=== PATIENT | female | born 1975 | race Caucasian/White ===

== ENCOUNTER → 2018-02-24 10:01 | Outpatient (REF) | payer MEDICAID, SELFPAY ==
[2018-02-24 13:25] LABS: Basophils # 0.1 K/mm3 (0-0.2); Basophils % 0.9 % (0.1-2.0); Eosinophils # 0.2 K/mm3 (0.0-0.4); Eosinophils % 1.1 % (0.1-12.0); Hematocrit 53.5 % (37.0-47.0); Hemoglobin 16.9 g/dL (12.2-16.2); Lymphocytes # 4.6 K/mm3 (0.7-4.5); Lymphocytes % 32.7 K/mm3 (10-50); Mean Corpuscular HGB Conc 31.6 g/dL (31.8-35.4); Mean Corpuscular Hemoglobin 29.9 pg (27.0-31.2); Mean Corpuscular Volume 94.6 fl (81-99); Mean Platelet Volume 9.1 fl (7.4-10.4); Monocytes # 0.9 K/mm3 (0.1-1.0); Monocytes % 6.1 % (1.7-9.3); Neutrophils # 8.3 K/mm3 (1.8-7.8); Neutrophils % 59.2 % (37.0-80.0); Platelet Count 292 K/mm3 (142-424); Red Blood Count 5.66 M/mm3 (4.20-5.40); Red Cell Distribution Width 13.9 % (11.5-17.5)
[2018-02-24 14:58] LABS: Alanine Aminotransferase 43 U/L (12-78); Albumin Level 3.8 gm/dL (3.4-5.0); Albumin/Globulin Ratio 1.2 (1.1-1.8); Alkaline Phosphatase 74 U/L (46-116); Anion Gap 15.3 mEq/L (5-15); Aspartate Amino Transferase 25 U/L (15-37); Bilirubin,Total 0.3 mg/dL (0.2-1.0); Blood Urea Nitrogen 22 mg/dL (7-18); Calcium 9.7 mg/dL (8.5-10.1); Carbon Dioxide 27 mmol/L (21.0-32.0); Chloride 105 mmol/L (98-107); Chol/HDL Ratio 2.8 (1-3.5); Cholesterol 244 mg/dL (140-200); Creatinine,Serum 0.88 mg/dL (0.55-1.02); Estimated Glomerular Filt Rate 70 ml/min (>60); Free T4 (Free Thyroxine) 1.11 ng/dl (0.76-1.46); GFR (African American) 85 ML/MIN (>60); Globulin 3.3 gm/dl (1.3-3.2); Glucose 79 mg/dL (74-106); HDL Cholesterol 86 mg/dL (29-89); LDL Cholesterol 142 mg/dL (0-130); Potassium 4.3 mmoL/L (3.5-5.1); Sodium 143 mmol/L (136-145); Thyroid Stimulating Hormone 6.22 uIU/ml (0.358-3.740); Total Protein,Serum 7.1 gm/dL (6.4-8.2); Triglycerides 78 mg/dL (30-200); VLDL Cholesterol 16 mg/dL (0-40)
[2018-02-24 15:30] LABS: Erythrocyte Sedimentation Rate 8 mm/hr (0-20)
[2018-02-25 10:09] LABS: Vitamin D 25 Hydroxy 35.1 ng/mL (30.0-100.0)
== END ==
LOC: LAB 10:01
PROVIDERS: Visit Provider Emergency Medicine
DX: R53.83 Other fatigue (principal); Z79.899 Other long term (current) drug therapy
CPT/HCPCS: 80053; 80061; 82652; 84439; 84443; 85025; 85651

== ENCOUNTER → 2018-03-10 14:12 | Outpatient (REF) | payer MEDICAID, SELFPAY ==
[2018-03-10 18:29] LABS: Basophils # 0.1 K/mm3 (0-0.2); Basophils % 0.9 % (0.1-2.0); Eosinophils # 0.1 K/mm3 (0.0-0.4); Eosinophils % 0.7 % (0.1-12.0); Hematocrit 56.2 % (37.0-47.0); Hemoglobin 17.8 g/dL (12.2-16.2); Lymphocytes # 2.7 K/mm3 (0.7-4.5); Lymphocytes % 27.4 K/mm3 (10-50); Mean Corpuscular HGB Conc 31.6 g/dL (31.8-35.4); Mean Corpuscular Hemoglobin 29.7 pg (27.0-31.2); Mean Corpuscular Volume 94.1 fl (81-99); Mean Platelet Volume 9.7 fl (7.4-10.4); Monocytes # 0.5 K/mm3 (0.1-1.0); Monocytes % 4.8 % (1.7-9.3); Neutrophils # 6.5 K/mm3 (1.8-7.8); Neutrophils % 66.3 % (37.0-80.0); Platelet Count 262 K/mm3 (142-424); Red Blood Count 5.97 M/mm3 (4.20-5.40); Red Cell Distribution Width 13.3 % (11.5-17.5); White Blood Count 9.7 K/mm3 (4.8-10.8)
[2018-03-13 08:03] LABS: Folate 18.3 ng/mL (>3.0); Vitamin B12 646 pg/mL (232-1245)
== END ==
LOC: LAB 14:12
PROVIDERS: Visit Provider Nurse Practitioner Family
DX: R71.8 Other abnormality of red blood cells (principal); R20.2 Paresthesia of skin; R53.83 Other fatigue
CPT/HCPCS: 82607; 82746; 85025

== ENCOUNTER → 2018-04-22 10:38 | Outpatient (CLI) | payer MEDICAID, SELFPAY | PROVIDERS: Visit Provider Emergency Medicine | DX: Z79.899 Other long term (current) drug therapy (principal) ==

== ENCOUNTER → 2018-04-22 10:59 | Outpatient (REF) | payer MEDICAID, SELFPAY ==
[2018-04-22 14:10] LABS: Amphetamine/Metha Screen,Urine Negative ng/mL (<1000); Barbiturates Screen,Urine Negative ng/mL (<200); Benzodiazepines Screen,Urine Negative ng/mL (<200); Cannabinoid Screen,Urine Negative ng/mL (<50); Cocaine Screen,Urine Negative ng/mL (<300); Methadone Screen,Urine Negative ng/mL (<300); Opiate Screen,Urine Negative ng/mL (<300); Phencyclidine Screen,Urine Negative ng/mL (<25)
[2018-05-05 00:06] LABS: Oxycodone (GC/MS) 374 ng/mL (Cutoff=100)
[2018-05-06 08:29] LABS: Opiates Negative (Cutoff=100)
== END ==
LOC: LAB 10:59
PROVIDERS: Visit Provider Emergency Medicine
DX: Z79.899 Other long term (current) drug therapy (principal)
CPT/HCPCS: 80305; 80361; 80365; G0480

== ENCOUNTER → 2018-05-20 10:49 | Outpatient (REF) | payer MEDICAID, SELFPAY ==
[2018-05-20 14:31] LABS: Amphetamine/Metha Screen,Urine Negative ng/mL (<1000); Barbiturates Screen,Urine Negative ng/mL (<200); Benzodiazepines Screen,Urine Negative ng/mL (<200); Cannabinoid Screen,Urine Negative ng/mL (<50); Cocaine Screen,Urine Negative ng/mL (<300); Methadone Screen,Urine Negative ng/mL (<300); Opiate Screen,Urine Negative ng/mL (<300); Phencyclidine Screen,Urine Negative ng/mL (<25)
== END ==
LOC: LAB 10:49
PROVIDERS: Visit Provider Emergency Medicine
DX: Z79.899 Other long term (current) drug therapy (principal)
CPT/HCPCS: 80305

== ENCOUNTER → 2018-06-16 12:41 | Outpatient (POV) | payer MEDICAID, SELFPAY ==
[2018-06-16 13:06] VITALS: BP 121/70; PULSE 81; RESP 18; O2SAT 98
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
--- NOTE | 2018-06-24 10:52 | PC.PHONENOTE ---
Pt called today at 10:53 to let staff know she will no longer be a patient at our pain clinic.
== END ==
PROVIDERS: Family Provider Pediatrics; PCP Emergency Medicine; Visit Provider Clinical Nurse Specialist Family Health
DX: G90.522 Complex regional pain syndrome I of left lower limb (principal); G90.50 Complex regional pain syndrome I, unspecified; M54.9 Dorsalgia, unspecified; G89.29 Other chronic pain
CPT/HCPCS: 99202

== ENCOUNTER → 2018-06-18 11:23 | Outpatient (CLI) | payer MEDICAID, SELFPAY ==
[2018-06-18 14:09] LABS: Amphetamine/Metha Screen,Urine Negative ng/mL (<1000); Barbiturates Screen,Urine Negative ng/mL (<200); Benzodiazepines Screen,Urine Negative ng/mL (<200); Cannabinoid Screen,Urine Negative ng/mL (<50); Cocaine Screen,Urine Negative ng/mL (<300); Methadone Screen,Urine Negative ng/mL (<300); Opiate Screen,Urine Negative ng/mL (<300); Phencyclidine Screen,Urine Negative ng/mL (<25)
== END ==
PROVIDERS: Visit Provider Emergency Medicine
DX: Z79.899 Other long term (current) drug therapy (principal)
CPT/HCPCS: 80305

== ENCOUNTER → 2018-06-19 08:03 | Outpatient (REF) | payer MEDICAID, SELFPAY ==
[2018-06-24 18:30] LABS: Oxycodone Positive (.); Oxymorphone Positive (.)
[2018-06-25 07:28] LABS: Oxycodone Confirm 289 ng/mL (Cutoff=100); Oxymorphone Confirm 447 ng/mL (Cutoff=100)
== END ==
LOC: LAB 08:03
PROVIDERS: Visit Provider Emergency Medicine
DX: Z79.899 Other long term (current) drug therapy (principal)
CPT/HCPCS: 80365

== ENCOUNTER → 2018-07-14 13:26 | Outpatient (POV) | payer MEDICAID, SELFPAY | PROVIDERS: Visit Provider Specialist | DX: M79.605 Pain in left leg (principal); M54.5 Low back pain; M25.552 Pain in left hip; G62.9 Polyneuropathy, unspecified | CPT/HCPCS: 95886; 95909 ==

== ENCOUNTER → 2018-07-17 16:30 | Outpatient (CLI) | payer MEDICAID, SELFPAY ==
[2018-07-18 15:17] LABS: Amphetamine/Metha Screen,Urine Negative ng/mL (<1000); Barbiturates Screen,Urine Negative ng/mL (<200); Benzodiazepines Screen,Urine Negative ng/mL (<200); Cannabinoid Screen,Urine Negative ng/mL (<50); Cocaine Screen,Urine Negative ng/mL (<300); Methadone Screen,Urine Negative ng/mL (<300); Opiate Screen,Urine Negative ng/mL (<300); Phencyclidine Screen,Urine Negative ng/mL (<25)
== END ==
PROVIDERS: Visit Provider Emergency Medicine
DX: Z79.899 Other long term (current) drug therapy (principal)
CPT/HCPCS: 80305

== ENCOUNTER → 2018-08-18 13:41 | Outpatient (CLI) | payer MEDICAID, SELFPAY ==
[2018-08-18 14:10] LABS: Anion Gap 16.1 mEq/L (5-15); Blood Urea Nitrogen 9 mg/dL (7-18); Carbon Dioxide 26 mmol/L (21.0-32.0); Chloride 103 mmol/L (98-107); Chol/HDL Ratio 2.8 (1-3.5); Cholesterol 207 mg/dL (140-200); Creatinine,Serum 0.72 mg/dL (0.55-1.02); Estimated Glomerular Filt Rate 89 ml/min (>60); GFR (African American) 107 ML/MIN (>60); Glucose 106 mg/dL (74-106); HDL Cholesterol 75 mg/dL (29-89); LDL Cholesterol 110 mg/dL (0-130); Potassium 4.1 mmoL/L (3.5-5.1); Sodium 141 mmol/L (136-145); Thyroid Stimulating Hormone 2.45 uIU/ml (0.358-3.740); Triglycerides 112 mg/dL (30-200); VLDL Cholesterol 22 mg/dL (0-40)
[2018-08-18 14:26] LABS: Amphetamine/Metha Screen,Urine Negative ng/mL (<1000); Barbiturates Screen,Urine Negative ng/mL (<200); Benzodiazepines Screen,Urine Negative ng/mL (<200); Cannabinoid Screen,Urine Negative ng/mL (<50); Cocaine Screen,Urine Negative ng/mL (<300); Methadone Screen,Urine Negative ng/mL (<300); Opiate Screen,Urine Negative ng/mL (<300); Phencyclidine Screen,Urine Negative ng/mL (<25)
[2018-09-03 02:13] LABS: Oxycodone (GC/MS) 453 ng/mL (Cutoff=100)
[2018-09-03 06:19] LABS: Opiates Negative (Cutoff=100); Oxymorphone (GC/MS) 784 ng/mL (Cutoff=100)
== END ==
PROVIDERS: PCP Emergency Medicine; Visit Provider Emergency Medicine
DX: R53.83 Other fatigue (principal); Z79.899 Other long term (current) drug therapy
CPT/HCPCS: 80048; 80061; 80305; 80361; 80365; 84439; 84443; G0480

== ENCOUNTER → 2018-09-18 13:47 | Outpatient (CLI) | payer MEDICAID, SELFPAY ==
[2018-09-18 15:14] LABS: Amphetamine/Metha Screen,Urine Negative ng/mL (<1000); Barbiturates Screen,Urine Negative ng/mL (<200); Benzodiazepines Screen,Urine Negative ng/mL (<200); Cannabinoid Screen,Urine Negative ng/mL (<50); Cocaine Screen,Urine Negative ng/mL (<300); Methadone Screen,Urine Negative ng/mL (<300); Opiate Screen,Urine Negative ng/mL (<300); Phencyclidine Screen,Urine Negative ng/mL (<25)
[2018-09-27 03:37] LABS: Oxycodone Positive (.); Oxymorphone Positive (.)
[2018-09-27 06:25] LABS: Oxycodone Confirm 310 ng/mL (Cutoff=100); Oxymorphone Confirm 376 ng/mL (Cutoff=100)
== END ==
PROVIDERS: Visit Provider Emergency Medicine
DX: Z79.899 Other long term (current) drug therapy (principal)
CPT/HCPCS: 80305; 80365

== ENCOUNTER → 2018-10-02 15:30 | Outpatient (CLI) | payer MEDICAID, SELFPAY ==
--- NOTE | 2018-10-02 15:33 | MM_ITS ---
MM Dig screening mamm BI w/CAD ORDERING PHYSICIAN : Denis Caraballo MD PATIENT AGE: 43 years GENDER: Female COMPARISON: We attempted called for previous films from [facility] [place] but they have never arrived. INDICATION: ITS.Routine Screening with no hormones. TECHNIQUE: Standard CC and MLO images were obtained. R2 CAD reviewed. Additional cc nipple profile views bilateral FINDINGS: Generalized fatty replacement with, Low-density breast bilaterally . No areas of concern either breast. No dominant nor suspicious mass. No suspicious calcifications. No architectural distortion. No areas of concern. Bilateral follow-up one year recommended. . IMPRESSION: No areas of concern either breast. Bilateral follow-up in one year recommended. BI-RADS Category: 1 Negative RECOMMENDED FOLLOW-UP: 1YR 1 YEAR FOLLOW-UP (A letter has been sent to the patient regarding results of the study.)
== END ==
PROVIDERS: PCP Emergency Medicine; Visit Provider Emergency Medicine
DX: Z12.31 Encounter for screening mammogram for malignant neoplasm of breast (principal)
CPT/HCPCS: 77067

== ENCOUNTER → 2018-11-19 19:01 | Outpatient (CLI) | payer MEDICAID, SELFPAY ==
[2018-11-19 20:29] LABS: Amphetamine/Metha Screen,Urine Negative ng/mL (<1000); Barbiturates Screen,Urine Negative ng/mL (<200); Benzodiazepines Screen,Urine Negative ng/mL (<200); Cannabinoid Screen,Urine Negative ng/mL (<50); Cocaine Screen,Urine Negative ng/mL (<300); Methadone Screen,Urine Negative ng/mL (<300); Opiate Screen,Urine Positive ng/mL (<300); Phencyclidine Screen,Urine Negative ng/mL (<25)
== END ==
PROVIDERS: Visit Provider Emergency Medicine
DX: Z79.899 Other long term (current) drug therapy (principal)
CPT/HCPCS: 80305

== ENCOUNTER → 2019-01-16 16:46 | Outpatient (CLI) | payer MEDICAID, SELFPAY ==
[2019-01-16 18:51] LABS: Amphetamine/Metha Screen,Urine Negative ng/mL (<1000); Barbiturates Screen,Urine Negative ng/mL (<200); Benzodiazepines Screen,Urine Negative ng/mL (<200); Cannabinoid Screen,Urine Negative ng/mL (<50); Cocaine Screen,Urine Negative ng/mL (<300); Methadone Screen,Urine Negative ng/mL (<300); Opiate Screen,Urine Negative ng/mL (<300); Phencyclidine Screen,Urine Negative ng/mL (<25)
[2019-01-25 20:07] LABS: Oxycodone (GC/MS) 1077 ng/mL (Cutoff=100)
[2019-01-26 07:46] LABS: Opiates Negative (Cutoff=100); Oxymorphone (GC/MS) 1406 ng/mL (Cutoff=100)
== END ==
PROVIDERS: Visit Provider Emergency Medicine
DX: M54.9 Dorsalgia, unspecified (principal); Z79.899 Other long term (current) drug therapy
CPT/HCPCS: 80305; 80361; 80365; G0480

== ENCOUNTER → 2019-03-17 17:23 | Outpatient (CLI) | payer MEDICAID, SELFPAY ==
[2019-03-17 18:24] LABS: Amphetamine/Metha Screen,Urine Negative ng/mL (<1000); Barbiturates Screen,Urine Negative ng/mL (<200); Benzodiazepines Screen,Urine Positive ng/mL (<200); Cannabinoid Screen,Urine Negative ng/mL (<50); Cocaine Screen,Urine Negative ng/mL (<300); Methadone Screen,Urine Negative ng/mL (<300); Opiate Screen,Urine Positive ng/mL (<300); Phencyclidine Screen,Urine Negative ng/mL (<25)
== END ==
PROVIDERS: Visit Provider Emergency Medicine
DX: Z79.899 Other long term (current) drug therapy (principal)
CPT/HCPCS: 80305

== ENCOUNTER → 2019-03-18 12:30 | Outpatient (CLI) | payer MEDICAID, SELFPAY ==
--- NOTE | 2019-03-18 12:34 | XR_ITS ---
XR knee LT 2V HISTORY: Follow-up fracture ITS.REASON: sp ORIF LT tibial plateau ORDERING PHYSICIAN: Jabari Vivas MD PATIENT AGE: 44 years COMPARISON: 03/03/2019 FINDINGS: Status post ORIF comminuted proximal fracture. A lateral bone plate is present over the proximal tibia with multiple screws and 2 screws from the anterior to posterior approach along the proximal tibia as well. There is good alignment with no significant change from the previous exam. IMPRESSION: No change status post ORIF comminuted proximal tibial fracture with good alignment
== END ==
PROVIDERS: PCP Emergency Medicine; Visit Provider Orthopaedic Surgery
DX: Z48.89 Encounter for other specified surgical aftercare (principal)
CPT/HCPCS: 73560

== ENCOUNTER 2019-03-18 13:35 | Outpatient (RCR) | payer MEDICAID, SELFPAY | END 2019-03-18 14:00 | disposition home or self-care (01) | LOC: PT 13:35 | PROVIDERS: Visit Provider Orthopaedic Surgery | DX: S82.142D Displaced bicondylar fracture of left tibia, subsequent encounter for closed fracture with routine healing (principal); Z09 Encounter for follow-up examination after completed treatment for conditions other than malignant neoplasm | CPT/HCPCS: 97760 ==

== ENCOUNTER → 2019-04-08 13:54 | Outpatient (CLI) | payer MEDICAID, SELFPAY ==
--- NOTE | 2019-04-08 13:59 | XR_ITS ---
XR knee LT 2V HISTORY: ITS.REASON: sp ORIF LT tibial plateau sx 03/02/19 ORDERING PHYSICIAN: Jabari Vivas MD PATIENT AGE: 44 years COMPARISON: 03/03/2019. FINDINGS: Bone density is normal. There is now compression plate with fixation screws involving the proximal and mid shaft of the tibia with separate proximal metaphyseal tibial fixation screws in the AP direction. There is anatomical alignment of the fracture fragments. There is no abnormal angulation. Joint spaces at the left knee are normal. Soft tissues are unremarkable. Impression: Postoperative findings as described above.
== END ==
PROVIDERS: PCP Emergency Medicine; Visit Provider Orthopaedic Surgery
DX: Z48.89 Encounter for other specified surgical aftercare (principal)
CPT/HCPCS: 73560

== ENCOUNTER → 2019-04-10 17:59 | Outpatient (CLI) | payer MEDICAID, SELFPAY ==
[2019-04-10 18:51] LABS: Amphetamine/Metha Screen,Urine Negative ng/mL (<1000); Barbiturates Screen,Urine Negative ng/mL (<200); Benzodiazepines Screen,Urine Negative ng/mL (<200); Cannabinoid Screen,Urine Negative ng/mL (<50); Cocaine Screen,Urine Negative ng/mL (<300); Methadone Screen,Urine Negative ng/mL (<300); Opiate Screen,Urine Positive ng/mL (<300); Phencyclidine Screen,Urine Negative ng/mL (<25)
== END ==
PROVIDERS: Visit Provider Nurse Practitioner Family
DX: Z79.899 Other long term (current) drug therapy (principal)
CPT/HCPCS: 80305

== ENCOUNTER → 2019-05-06 13:00 | Outpatient (CLI) | payer MEDICAID, SELFPAY ==
--- NOTE | 2019-05-06 13:06 | XR_ITS ---
PROCEDURE: XR KNEE LT 2V CLINICAL INDICATION: sp ORIF LT tibia dos 03/03/19 COMPARISON: from 04/08/2019 FINDINGS: Status post ORIF. Lateral bone plate and screws remain in the proximal tibia with good alignment of the fracture fragments. Fracture line is somewhat less apparent on the lateral view suggesting healing. IMPRESSION: Healing proximal tibial fracture with good alignment status post ORIF Dictated by: Harvey Handley MD 05/06/2019 13:29 Signed by: <Electronically signed by Harvey Handley MD in [place]> 05/06/2019 13:29
== END ==
PROVIDERS: PCP Emergency Medicine; Visit Provider Orthopaedic Surgery
DX: S82.142A Displaced bicondylar fracture of left tibia, initial encounter for closed fracture (principal); Z09 Encounter for follow-up examination after completed treatment for conditions other than malignant neoplasm
CPT/HCPCS: 73560

== ENCOUNTER → 2019-05-08 17:17 | Outpatient (CLI) | payer MEDICAID, SELFPAY ==
[2019-05-08 18:37] LABS: Amphetamine/Metha Screen,Urine Negative ng/mL (<1000); Barbiturates Screen,Urine Negative ng/mL (<200); Benzodiazepines Screen,Urine Positive ng/mL (<200); Cannabinoid Screen,Urine Negative ng/mL (<50); Cocaine Screen,Urine Negative ng/mL (<300); Methadone Screen,Urine Negative ng/mL (<300); Opiate Screen,Urine Negative ng/mL (<300); Phencyclidine Screen,Urine Negative ng/mL (<25)
[2019-05-17 21:10] LABS: Alprazolam Negative (Cutoff=100); Benzodiazepines Negative ng/mL (Cutoff=100); Clonazepam Negative (Cutoff=100); Flurazepam Negative (Cutoff=100); Lorazepam Negative (Cutoff=100); Midazolam Negative (Cutoff=100); Temazepam Negative (Cutoff=100); Triazolam Negative (Cutoff=100)
[2019-05-18 18:51] LABS: Opiates Negative (Cutoff=100)
== END ==
PROVIDERS: Visit Provider Emergency Medicine
DX: M54.9 Dorsalgia, unspecified (principal)
CPT/HCPCS: 80305; 80346; 80361; 80365; G0480

== ENCOUNTER → 2019-06-03 14:24 | Outpatient (CLI) | payer MEDICAID, SELFPAY ==
--- NOTE | 2019-06-03 14:27 | XR_ITS ---
PROCEDURE: XR KNEE LT 2V CLINICAL INDICATION: sp ORIF lt tibia; pt fell and is having pain Follow-up fracture/ORIF COMPARISON: from 04/08/2019 XR KNEE LT 2V from 05/06/2019 FINDINGS: Lateral bone plate with multiple transverse screws remain in place. There remains a lucency along the medial aspect of the proximal tibia consistent with residual fracture line. Sclerosis is present along the proximal tibia medially as well. There remains good alignment IMPRESSION: Good alignment status post ORIF proximal tibial fracture with evidence of healing with persistent fracture line noted along the medial aspect of the proximal tibia Dictated by: Harvey Handley MD 06/03/2019 14:50 Electronically signed by Harvey Handley MD in [place] 06/03/2019 14:50
== END ==
PROVIDERS: PCP Emergency Medicine; Visit Provider Orthopaedic Surgery
DX: S82.142D Displaced bicondylar fracture of left tibia, subsequent encounter for closed fracture with routine healing (principal); Z48.89 Encounter for other specified surgical aftercare
CPT/HCPCS: 73560

== ENCOUNTER → 2019-07-03 17:23 | Outpatient (CLI) | payer MEDICAID, SELFPAY ==
[2019-07-03 18:14] LABS: Amphetamine/Metha Screen,Urine Negative ng/mL (<1000); Barbiturates Screen,Urine Negative ng/mL (<200); Benzodiazepines Screen,Urine Positive ng/mL (<200); Cannabinoid Screen,Urine Negative ng/mL (<50); Cocaine Screen,Urine Negative ng/mL (<300); Methadone Screen,Urine Negative ng/mL (<300); Opiate Screen,Urine Negative ng/mL (<300); Phencyclidine Screen,Urine Negative ng/mL (<25)
[2019-07-12 13:08] LABS: Alprazolam Negative (Cutoff=100); Benzodiazepines Positive ng/mL (Cutoff=100); Clonazepam Positive (.); Flurazepam Negative (Cutoff=100); Lorazepam Negative (Cutoff=100); Midazolam Negative (Cutoff=100); Oxycodone (GC/MS) 261 ng/mL (Cutoff=100); Oxymorphone (GC/MS) 923 ng/mL (Cutoff=100); Temazepam Positive (.); Triazolam Negative (Cutoff=100)
[2019-07-13 03:00] LABS: Clonazepam Confirm 769 ng/mL (Cutoff=100); Opiates Negative (Cutoff=100)
== END ==
PROVIDERS: Visit Provider Emergency Medicine
DX: Z79.899 Other long term (current) drug therapy (principal)
CPT/HCPCS: 80305; 80346; 80361; 80365; G0480

== ENCOUNTER → 2019-07-21 09:10 | Outpatient (CLI) | payer MEDICAID, SELFPAY ==
--- NOTE | 2019-07-21 09:24 | XR_ITS ---
PROCEDURE: XR KNEE LT 2V CLINICAL INDICATION: sp ORIF LT tibia; done at outside facility Follow-up ORIF COMPARISON: XR KNEE LT 2V from 05/06/2019 XR KNEE LT 2V from 06/03/2019 FINDINGS: There is a lateral bone plate with transverse screws at the proximal tibia extending to the mid to proximal tibial region. There is good alignment. There is some osteosclerosis along the medial aspect of the proximal screws with a faint lucency medially. There are 2 anterior to posterior screws at the proximal tibia which are stable. Other findings:None. IMPRESSION: Status post ORIF tibial plateau fracture with good alignment not significantly changed the Dictated by: Harvey Handley MD 07/21/2019 15:53 Electronically signed by Harvey Handley MD in [place] 07/21/2019 15:53
== END ==
PROVIDERS: PCP Emergency Medicine; Visit Provider Orthopaedic Surgery
DX: S82.142D Displaced bicondylar fracture of left tibia, subsequent encounter for closed fracture with routine healing (principal); Z09 Encounter for follow-up examination after completed treatment for conditions other than malignant neoplasm
CPT/HCPCS: 73560

== ENCOUNTER → 2019-09-01 13:58 | Outpatient (CLI) | payer MEDICAID, SELFPAY ==
[2019-09-01 16:53] LABS: Amphetamine/Metha Screen,Urine Negative ng/mL (<1000); Barbiturates Screen,Urine Negative ng/mL (<200); Benzodiazepines Screen,Urine Negative ng/mL (<200); Cannabinoid Screen,Urine Negative ng/mL (<50); Cocaine Screen,Urine Negative ng/mL (<300); Methadone Screen,Urine Negative ng/mL (<300); Opiate Screen,Urine Negative ng/mL (<300); Phencyclidine Screen,Urine Negative ng/mL (<25)
[2019-09-12 09:44] LABS: Alprazolam Negative (Cutoff=100); Benzodiazepines Positive ng/mL (Cutoff=100); Clonazepam Positive (.); Flurazepam Negative (Cutoff=100); Lorazepam Negative (Cutoff=100); Midazolam Negative (Cutoff=100); Oxycodone Positive (.); Oxymorphone Positive (.); Temazepam Negative (Cutoff=100); Triazolam Negative (Cutoff=100)
[2019-09-12 11:11] LABS: Clonazepam Confirm 287 ng/mL (Cutoff=100); Oxycodone Confirm 735 ng/mL (Cutoff=100); Oxymorphone Confirm 600 ng/mL (Cutoff=100)
== END ==
PROVIDERS: Visit Provider Emergency Medicine
DX: Z79.899 Other long term (current) drug therapy (principal)
CPT/HCPCS: 80305; 80346; 80365

== ENCOUNTER → 2019-09-29 13:56 | Outpatient (CLI) | payer MEDICAID, SELFPAY ==
--- NOTE | 2019-09-29 14:03 | XR_ITS ---
PROCEDURE: XR KNEE LT 2V CLINICAL INDICATION: ORIF LT tibia Follow-up surgery COMPARISON: XR KNEE LT 2V from 05/06/2019 XR KNEE LT 2V from 06/03/2019 XR KNEE LT 2V from 07/21/2019 XR TIBIA FIBULA LT 2V from 09/29/2019 FINDINGS: Status post proximal left tibia with lateral bone plate transfixed by multiple screws as well as 2 screws within the anterior aspect of the proximal tibia. There is good alignment with no acute fracture or dislocation. Mid distal aspect of the tibia and fibula have an unremarkable appearance. The joint spaces are well-preserved. No significant degenerative/arthritic changes. No erosive changes evident. Other findings:None. IMPRESSION: Status post ORIF proximal left tibia with hardware in place. Good alignment with no acute finding. Fracture line no longer visualized Dictated by: Harvey Handley MD 09/29/2019 14:45 Electronically signed by Harvey Handley MD in [place] 09/29/2019 14:45
== END ==
PROVIDERS: PCP Emergency Medicine; Visit Provider Orthopaedic Surgery
DX: S82.142A Displaced bicondylar fracture of left tibia, initial encounter for closed fracture (principal); Z09 Encounter for follow-up examination after completed treatment for conditions other than malignant neoplasm
CPT/HCPCS: 73560; 73590

== ENCOUNTER → 2019-10-27 12:41 | Outpatient (CLI) | payer MEDICAID, SELFPAY ==
--- NOTE | 2019-10-27 12:41 | IR_ITS ---
PROCEDURE: IR ARTHROGRAM KNEE LT CLINICAL INDICATION: sp ORIF tibia done at outside facility Knee pain following surgery, medial knee pain, evaluate for meniscal injury COMPARISON: XR TIBIA FIBULA LT 2V from 09/29/2019 FINDINGS: Following obtaining informed consent under aseptic conditions and local anesthesia with 1 percent buffered lidocaine, a 25 gauge needle is inserted into the medial joint space by the anterior approach. Approximately 20 mL of a 1-1 ratio mixture of Optiray 320 and 1 percent lidocaine was injected. Patient tolerated the procedure well without evidence of immediate complications. Images obtained following the arthrogram show a lateral bone plate with multiple fixating screws at the proximal tibia as well as 2 screws along the anterior aspect of the tibial tuberosity. The contrast: See inter to articular surface of the knee and the menisci. The patient was then transported to the CT suite where CT of the knee was performed. Please see that report for further discussion. Small amount air was introduced into the suprapatellar region during the contrast injection. IMPRESSION: Uneventful fluoroscopic guided arthrogram of the left knee. Please see the CT scan for further findings Dictated by: Harvey Handley MD 10/29/2019 08:45 Electronically signed by Harvey Handley MD in [place] 10/29/2019 08:45
--- NOTE | 2019-10-27 12:41 | CT_ITS ---
PROCEDURE: CT KNEE LT W CON CLINICAL HISTORY: CT arthrogram LT knee Medial left knee pain. Status post prior ORIF for tibial plateau fracture. Evaluate for medial meniscus tear COMPARISON: XR TIBIA FIBULA LT 2V from 09/29/2019 TECHNIQUE: Please see arthrogram report for technique Axial images obtained with sagittal and coronal reformats. All CT scans at the facility use one or more dose reduction, viz: automated exposure control, ma/kV adjustment per patient size (including targeted exams where dose is matched to indication, i.e. head), or iterative reconstruction technique. FINDINGS: There is significant artifact from the lateral tibial bone plate and multiple fixating screws. There is contrast present within the knee joint. A small amount air was also present in the suprapatellar region. Small amount of contrast extravasated into the infrapatellar fat pad. The posterior cruciate ligament appears intact. The anterior cruciate ligament is not well delineated and appears somewhat bunched up superiorly. The menisci are well outline showing no obvious evidence of meniscal tear. IMPRESSION: 1. No evidence of meniscal tear. 2. Significant artifact from prior ORIF of the tibial plateau. 3. The anterior cruciate ligament is not well-defined. ACL injury is a consideration. Please correlate with physical exam and other clinical parameters. Dictated by: Harvey Handley MD 10/29/2019 08:41 Electronically signed by Harvey Handley MD in [place] 10/29/2019 08:41
== END ==
PROVIDERS: PCP Emergency Medicine; Visit Provider Orthopaedic Surgery
DX: S82.142A Displaced bicondylar fracture of left tibia, initial encounter for closed fracture (principal); Z09 Encounter for follow-up examination after completed treatment for conditions other than malignant neoplasm
CPT/HCPCS: 73580; 73701; Q9967

== ENCOUNTER → 2019-10-28 13:52 | Outpatient (CLI) | payer MEDICAID, SELFPAY ==
[2019-10-28 14:49] LABS: Amphetamine/Metha Screen,Urine Negative ng/mL (<1000); Barbiturates Screen,Urine Negative ng/mL (<200); Benzodiazepines Screen,Urine Negative ng/mL (<200); Cannabinoid Screen,Urine Negative ng/mL (<50); Cocaine Screen,Urine Negative ng/mL (<300); Methadone Screen,Urine Negative ng/mL (<300); Opiate Screen,Urine Negative ng/mL (<300); Phencyclidine Screen,Urine Negative ng/mL (<25)
[2019-11-08 18:13] LABS: Alprazolam Negative (Cutoff=100); Benzodiazepines Positive ng/mL (Cutoff=100); Clonazepam Positive (.); Flurazepam Negative (Cutoff=100); Lorazepam Negative (Cutoff=100); Midazolam Negative (Cutoff=100); Oxycodone (GC/MS) 361 ng/mL (Cutoff=100); Oxymorphone (GC/MS) 340 ng/mL (Cutoff=100); Temazepam Negative (Cutoff=100); Triazolam Negative (Cutoff=100)
[2019-11-08 22:06] LABS: Clonazepam Confirm 240 ng/mL (Cutoff=100); Opiates Negative (Cutoff=100)
== END ==
PROVIDERS: Visit Provider Emergency Medicine
DX: G89.29 Other chronic pain (principal)
CPT/HCPCS: 80305; 80346; 80361; 80365; G0480

== ENCOUNTER → 2020-04-13 11:25 | Outpatient (CLI) | payer MEDICAID, SELFPAY ==
--- NOTE | 2020-04-13 11:25 | MR_ITS ---
PROCEDURE: MR CERVICAL SPINE WO CON CLINICAL INDICATION: neck pain Neck pain, right arm pain COMPARISON: No exams were available for comparison TECHNIQUE: Standard multiplanar multiecho sequences are performed without contrast. 3-D MIP and myelographic images are also rendered and reviewed FINDINGS: There is normal alignment. The cranial cervical junction has an unremarkable appearance. C2-C3: Unremarkable. C3-C4: Unremarkable. C4-C5: Unremarkable. C5-C6: Minimal bulging disc slightly eccentric toward the right without impingement C6-C7: Minimal central disc protrusion without impingement. C7-T1: Unremarkable IMPRESSION: 1. Minimal bulging disc at C5-C6 slightly eccentric to the right without impingement 2. Minimal central disc protrusion C6-C7 without impingement 3. Otherwise negative Dictated by: Harvey Handley MD 04/15/2020 07:37 Electronically signed by Harvey Handley MD in [place] 04/15/2020 07:37
== END ==
PROVIDERS: PCP Emergency Medicine; Visit Provider Emergency Medicine
DX: M25.512 Pain in left shoulder (principal); M54.2 Cervicalgia
CPT/HCPCS: 72141; 76376

== ENCOUNTER → 2020-04-20 11:25 | Outpatient (CLI) | payer MEDICAID, SELFPAY ==
[2020-04-20 12:15] LABS: Basophils # 0.1 K/mm3 (0-0.2); Basophils % 0.7 % (0.1-2.0); Eosinophils # 0.2 K/mm3 (0.0-0.4); Eosinophils % 1.9 % (0.1-12.0); Hematocrit 46.2 % (37.0-47.0); Hemoglobin 15.5 g/dL (12.2-16.2); Lymphocytes # 4.6 K/mm3 (0.7-4.5); Lymphocytes % 37.6 % (10-50); Mean Corpuscular HGB Conc 33.6 g/dL (31.8-35.4); Mean Corpuscular Hemoglobin 31.7 pg (27.0-31.2); Mean Corpuscular Volume 94.2 fl (81-99); Mean Platelet Volume 8.5 fl (7.4-10.4); Monocytes # 0.5 K/mm3 (0.1-1.0); Monocytes % 4.3 % (1.7-9.3); Neutrophils # 6.8 K/mm3 (1.8-7.8); Neutrophils % 55.5 % (37.0-80.0); Platelet Count 231 K/mm3 (142-424); Red Cell Distribution Width 13.7 % (11.5-17.5); White Blood Count 12.2 K/mm3 (4.8-10.8)
[2020-04-20 12:22] LABS: Urine Pregnancy, HCG Qual. Negative (Negative)
[2020-04-20 12:57] LABS: Chloride 103 mmol/L (98-107); Potassium 4.8 mmoL/L (3.5-5.1); Sodium 141 mmol/L (136-145)
[2020-04-20 13:00] LABS: Alanine Aminotransferase 81 U/L (12-78); Albumin Level 3.8 g/dl (3.5-5.0); Albumin/Globulin Ratio 1.7 (1.1-1.8); Alkaline Phosphatase 54 U/L (38-126); Anion Gap 9.8 mEq/L (5-15); Aspartate Amino Transferase 68 U/L (14-36); Bilirubin,Total 0.4 mg/dl (0.2-1.3); Blood Urea Nitrogen 17 mg/dl (7-17); Calcium 9.2 mg/dl (8.4-10.2); Carbon Dioxide 33 mmol/L (22.0-30.0); Estimated Glomerular Filt Rate 91 ml/min (>60); GFR (African American) 110 ML/MIN (>60); Globulin 2.3 g/dL (1.3-3.2); Glucose 83 mg/dl (74-100); Total Protein,Serum 6.1 g/dl (6.3-8.2)
[2020-04-20 13:57] LABS: Coronavirus 19 IgG Antibody Negative (Negative); Coronavirus 19 IgM Antibody Negative (Negative)
== END ==
PROVIDERS: Visit Provider Orthopaedic Surgery
DX: Z01.812 Encounter for preprocedural laboratory examination (principal); Z20.828 Contact with and (suspected) exposure to other viral communicable diseases
CPT/HCPCS: 36415; 80053; 81025; 85025; 86328

== ENCOUNTER → 2020-06-17 14:09 | Outpatient (CLI) | payer MEDICAID, SELFPAY ==
--- NOTE | 2020-06-17 14:18 | XR_ITS ---
PROCEDURE: XR KNEE LT 3V CLINICAL INDICATION: sp orif lt tibia (done at outside hospital) COMPARISON: No exams were available for comparison FINDINGS: There is a long metallic side plate extending from the lateral tibial plateau along the lateral side of the proximal tibia fixated by multiple threaded screws stabilizing a tibial plateau fracture which is not well seen with the hardware in place and without previous studies available for comparison. There is no evidence of loosening of the hardware. The head of the fibula and proximal fibula appear intact. There is minor joint space narrowing medially. The femoral condyles and patella appear normal. IMPRESSION: Satisfactory ORIF tibial plateau fracture Dictated by: Dr. Wayne Stafford MD 06/18/2020 10:13 Dr. Wayne Stafford MD in [place] 06/18/2020 10:13
== END ==
PROVIDERS: PCP Emergency Medicine; Visit Provider Orthopaedic Surgery
DX: S82.142A Displaced bicondylar fracture of left tibia, initial encounter for closed fracture (principal); Z09 Encounter for follow-up examination after completed treatment for conditions other than malignant neoplasm
CPT/HCPCS: 73562

== ENCOUNTER → 2020-06-25 11:00 | Outpatient (CLI) | payer MEDICAID, SELFPAY ==
--- NOTE | 2020-06-25 11:21 | ECG_ITS ---
APPROVED REPORT Exam: Resting ECG HR:69 bpm ECG Measurements Heart Rate 69 AXES [place] 170 P 60 QRSd 74 QRS 56 QT 422 T 67 QTc 452 Conclusion Normal sinus rhythm Possible Left atrial enlargement Low voltage QRS Incomplete RBBB Borderline ECG Electronically signed by : Alexis Giron, 06/27/2020 09:25:47
--- NOTE | 2020-06-25 11:25 | XR_ITS ---
PROCEDURE: XR CHEST 2V Referring Doctor: Jabari Vivas Patient Age:45Y CLINICAL HISTORY: SMOKER A patient to have hardware removed from the left lower leg COMPARISON: No exams were available for comparison FINDINGS: PA and lateral chest performed today. No previous studies for comparison Nothing definitely acute. The lungs are well expanded and clear with only slight coarsening of interstitial pattern which may reflect history of smoking. The heart mecca and mediastinal structures appears satisfactory. No pleural effusion, no pneumothorax nor pleural findings. There is normal pulmonary vascularity. Heart size is normal. Mecca and mediastinal structures satisfactory. Chest wall in T-spine unremarkable. . IMPRESSION: No acute findings.. No active disease. Suggestion minor chronic changes Dictated by: Jason Garcia MD 06/25/2020 13:11 Jason Garcia MD in [place] 06/25/2020 13:11
[2020-06-25 11:59] LABS: Basophils # 0.1 K/mm3 (0-0.2); Basophils % 1.6 % (0.1-2.0); Eosinophils # 0.2 K/mm3 (0.0-0.4); Eosinophils % 2.5 % (0.1-12.0); Hematocrit 52.5 % (37.0-47.0); Hemoglobin 16.7 g/dL (12.2-16.2); Lymphocytes # 2.9 K/mm3 (0.7-4.5); Lymphocytes % 36.2 % (10-50); Mean Corpuscular HGB Conc 31.8 g/dL (31.8-35.4); Mean Corpuscular Hemoglobin 30.8 pg (27.0-31.2); Mean Corpuscular Volume 96.6 fl (81-99); Mean Platelet Volume 8.6 fl (7.4-10.4); Monocytes # 0.6 K/mm3 (0.1-1.0); Monocytes % 7.2 % (1.7-9.3); Neutrophils # 4.1 K/mm3 (1.8-7.8); Neutrophils % 52.6 % (37.0-80.0); Platelet Count 227 K/mm3 (142-424); Red Blood Count 5.44 M/mm3 (4.20-5.40); Red Cell Distribution Width 13.5 % (11.5-17.5); White Blood Count 7.9 K/mm3 (4.8-10.8)
[2020-06-25 12:01] LABS: Urine Pregnancy, HCG Qual. Negative (Negative)
[2020-06-25 12:35] LABS: Coronavirus 19 IgG Antibody Negative (Negative); Coronavirus 19 IgM Antibody Negative (Negative)
[2020-06-25 12:40] LABS: Chloride 104 mmol/L (98-107); Sodium 142 mmol/L (136-145)
[2020-06-25 12:42] LABS: Alanine Aminotransferase 79 U/L (12-78); Alkaline Phosphatase 56 U/L (38-126); Aspartate Amino Transferase 72 U/L (14-36); Bilirubin,Total 0.5 mg/dl (0.2-1.3); Blood Urea Nitrogen 9 mg/dl (7-17); Estimated Glomerular Filt Rate 91 ml/min (>60); GFR (African American) 110 ML/MIN (>60)
[2020-06-25 12:43] LABS: Albumin/Globulin Ratio 1.5 (1.1-1.8); Calcium 9.5 mg/dl (8.4-10.2); Carbon Dioxide 35 mmol/L (22.0-30.0); Globulin 2.6 g/dL (1.3-3.2); Glucose 83 mg/dl (74-100); Total Protein,Serum 6.6 g/dl (6.3-8.2)
== END ==
PROVIDERS: Visit Provider Orthopaedic Surgery
DX: S82.142D Displaced bicondylar fracture of left tibia, subsequent encounter for closed fracture with routine healing (principal); M79.605 Pain in left leg; M25.562 Pain in left knee; G89.29 Other chronic pain; Z01.89 Encounter for other specified special examinations
CPT/HCPCS: 36415; 71046; 80053; 81025; 85025; 86328; 93005

== ENCOUNTER 2020-06-27 07:05 | Day surgery (SDC) | payer MEDICAID, SELFPAY ==
[2020-06-23 14:38] VITALS: BMI 25.7
[2020-06-27] VITALS (11 sets, daily range): BP systolic 106–148; BP diastolic 58–87; PULSE 77–88; RESP 16–20; TEMP 36.2–43; O2SAT 92–97
--- NOTE | 2020-06-27 12:05 | XR_ITS ---
PROCEDURE: XR TIBIA FIBULA LT 2V CLINICAL INDICATION: HARDWARE REMOVAL COMPARISON: No exams were available for comparison FINDINGS: Fluoroscopy time: 23 seconds. Multiple images are submitted showing removal of the lateral bone plate and multiple cortical screws at the proximal tibia. The tibial tuberosity screws are also removed. IMPRESSION: Status post hardware removal as described above Dictated by: Harvey Handley MD 06/27/2020 13:50 Harvey Handley MD in [place] 06/27/2020 13:50
--- NOTE | 2020-06-27 12:38 | HMH.ANESCL ---
[facility] Anesthesia Checklist - Patient Identification Patient Identification: Arm Band, Verbal (Name & ) - Structural Data Admitted From: Home Planned Operative Procedure/s: left knee scope Consent for Planned Operative Procedure(s) Verified: Yes Verified Documents: History and Physical - NPO Status Verified Time NPO: 00:00 - Chart Verification Results Verified: CBC, BMP - Additional verifications Patient : No Anesthesia Reactions: No Hx Blood Transfusions: No Blood Transfusion Reaction: No Cephalosporin Allergy: No Previous Colonoscopy: No - Cardiovascular Assessment Heart Sounds: S1 & S2 Pulse Strength: Baseline Pulse Rhythm: Regular Peripheral Edema: Yes - Airway Assessment C-Spine Mobility Assessed: Yes TMJ Mobility Assessed: Yes Dentition: Good Dentition - Neurological Assessment Level of Consciousness: Awake, Alert, Appropriate Hx Seizures: No Numbness or tingling in extremities: No - Anesthesia Plan Anesthesia Risk discussed: Yes Anesthesia Plan: Verified ASA Class: III Anesthesia Type: General [facility] History I have reviewed the patient's past medical history: Yes Medical History: Reports:: Anxiety, Congestive Heart Failure, Hyperlipidemia Denies:: Cancer, Diabetes Mellitus Type 1, Diabetes Mellitus Type 2, Internal Pacemaker, MRSA, Seizures *Have you ever received a pneumonia vaccine?: No *Have you received a flu vaccine this season?: No Other Medical History: Reports: Thyroid Disease. Denies: Blood Transfusion Reaction Anesthesia experience/problems:: none Laterality Cases: Left: Arthroscopy Hip, Bilateral: Tonsillectomy Other Surgeries: Yes: , Diagnostic Lap, Hysterectomy-Total, Other. No: Pacemaker Amputation: No Fractures: Yes - *Social History Smoking Status: Current every day smoker Tobacco Type: cigarettes # Packs/Day (cigarettes): 2 Alcohol Intake: never Alcohol Intake Frequency:: a few times a month Substance Use Type: denies use *Occupational Status:: employed Housing: house Household Members: spouse *Travel in the last 8 weeks: None - Psychiatric History Pschychiatric History:: Reports:: Anxiety Family Hx:: Cancer, Diabetes, Hypertension, Hyperlipidemia [employer] history: Endometriosis
--- NOTE | 2020-06-27 12:40 | HMH.ANESI ---
[facility] Anesthesia Record Part I Intake, IV Amount: 1,600 Estimated blood loss (mL): 10 Urine output (mL): 0 Blood Products used (#): none Blood Pressure: 129/77 SaO2: 97 Pulse Rate: 77 Respiratory Rate: 18 Temperature: 98.0 F Patient is:: Drowsy, Nasal O2, Stable Stable to PACU at:: 12:32
--- NOTE | 2020-06-27 13:10 | PC.NURSE ---
1300-detailed report called to MANISHA Pacheco 1302-pt transported to post op via stretcher w/ledy rails up and left in care of MANISHA Pacheco with bed locked in lowest position, vss, pt stable
--- NOTE | 2020-06-27 13:33 | P.PN_ITS ---
[facility] Anesthesia Record Part II Discharge Time: 13:02 Destination: Surgical Day Care (OP Surgery) PACU nurse assessment reviewed?: Yes Patient Condition:: Good Anesthesia Complications:: None Swallowing reflex intact?: Yes Cyanosis?: No Blood Pressure: 143/76 Pulse Rate: 80 Temperature: 97.8 F Mental Status: Alert & Oriented Pain level:: 1 Nausea and/or vomitting:: None Intake, IV Amount: 50
--- NOTE | 2020-06-27 15:54 | HMH.OPNOTE ---
Date of procedure: 06/27/20 Pre-op Diagnosis:: 1.? Chronic pain, left knee 2.? Status post ORIF lateral tibial plateau fracture, left knee 3. Incomplete ACL tear, left knee Post-op Diagnosis:: 1.? Chronic pain, left knee 2.? Status post ORIF lateral tibial plateau fracture, left knee 3. Incomplete ACL tear, left knee 4. Medial meniscus tear, left knee Procedure performed:: 1. Examination of left knee under anesthesia 2. Arthroscopic partial medial meniscectomy, left knee 3. Removal of hardware, lateral tibial plateau, left knee Surgeon:: Jabari Vivas MD Lime Spreader(s):: Kimi Wei [employer] MANAGER:: Rashi Lerner Anesthesia: GETA Estimated blood loss (mL): 10 Clinical Note:: Patient is a 45-year-old female who underwent an open reduction internal fixation for the lateral tibial plateau fracture of her left knee about 15 months ago in [place].She suffered the injury while vacationing at [place] in February 2019. The fracture has since healed but patient is having pain in relation to some of the screw heads as well as tips of the screws over the medial aspect of the tibial plateau as well as the torres bone. Her symptoms are worse if she hits on to something or while she is walking. She also reports continued pain over the medial joint line. She also reports some radiation of the pain distally. She rates her pain a 0 out of 10 at rest and a 7 out of 10 on the pain scale at its worst. No history of any fevers, chills or rigors. No history of any erythema, swelling or redness. No history of any distal tingling or numbness. She reports a sensation of knee giving out and had a fall few months ago. She also reports intermittent knee swelling. She does not report any improvement in her symptoms over a long time. She has done extensive physical therapy and home excise program. Her medical history includes anxiety, CRPS, hyperlipidemia, hypothyroidism, congestive heart failure and tobacco abuse. She is a chronic smoker for many years.? Clinically and radiologically the fracture has healed well.? Given these factors, removal of the hardware is clinically indicated and necessary.? Please refer to my office note for full details. Operative findings:: On examination of the left knee under anesthesia, a small amount of knee effusion was noted. Knee range of motion was 0-140 degrees of flexion. Knee joint is noted to be stable to varus and valgus stress at 0 and 30 degrees of knee flexion. Negative anterior and posterior drawers. Negative Zoila's test. Negative pivot shift test. Arthroscopic findings included minor grade 2 degenerative changes over the lateral tibial plateau with rest of the articular surfaces well-preserved. The medial meniscus had a peripheral degenerative tear involving the anterior horn. The lateral meniscus was noted to be intact. The anterolateral bundle of the anterior cruciate ligament was noted to be partially torn from the femoral attachment. More than two thirds of the ACL was intact. Mild synovitis was noted. Plate and screw fixation of the lateral tibial plateau as seen on the preoperative x-rays.? The implants are well fixed and no evidence of any implant related infection is noted. All the screws and plate were removed easily without any problems. The lateral tibial plateau fracture is well healed as noted on the preoperative imaging. Operative note:: On the day of the surgery patient was met in the preoperative area and positively identified. I have again reviewed the diagnosis, natural history and management options in detail including both nonsurgical and surgical.? Given the chronicity of her symptoms, she wished to proceed with knee arthroscopy, evaluation/debridement as needed and removal of hardware from the lateral tibial plateau.? I have discussed the details of the procedure, risks and benefits and alternatives. The complications discussed include but are not limited to infection, bleeding, injury to ner
== END 2020-06-27 13:35 | disposition home or self-care (01) ==
PROVIDERS: PCP Emergency Medicine; Visit Provider Orthopaedic Surgery
PROC: (CPT 29870; principal; 2020-06-27 09:00)
DX: Z47.2 Encounter for removal of internal fixation device (principal); M23.204 Derangement of unspecified medial meniscus due to old tear or injury, left knee; E03.9 Hypothyroidism, unspecified; Z72.0 Tobacco use; I50.9 Heart failure, unspecified; G90.522 Complex regional pain syndrome I of left lower limb
CPT/HCPCS: 29881; 20680; 73590; 76000; 96374; J2405

== ENCOUNTER → 2020-08-30 14:39 | Outpatient (CLI) | payer MEDICAID, SELFPAY ==
--- NOTE | 2020-08-30 14:42 | XR_ITS ---
PROCEDURE: XR KNEE LT 3V CLINICAL INDICATION: sp lt knee scope and hardware removal left tibia COMPARISON: CR XR KNEE LT 2V from 07/21/2019 CR XR KNEE LT 2V from 09/29/2019 DX IR ARTHROGRAM KNEE LT from 10/27/2019 CR XR KNEE LT 3V from 06/17/2020 FINDINGS: No fracture or dislocation. No lytic or blastic change. There is normal mineralization. Status post hardware removal with multiple screws hose in the proximal tibia. Mild osteoarthritis of the medial compartment and patellofemoral Other findings:Joint IMPRESSION: Postsurgical changes with osteoarthritis Dictated by: Harvey Handley MD 08/30/2020 15:02 Harvey Handley MD in [place] 08/30/2020 15:02
--- NOTE | 2020-08-30 14:42 | XR_ITS ---
PROCEDURE: XR TIBIA FIBULA LT 2V CLINICAL INDICATION: sp lt knee scope and hardware removal left tibia COMPARISON: CR XR TIBIA FIBULA LT 2V from 09/29/2019 XA XR TIBIA FIBULA LT 2V from 06/27/2020 CR XR KNEE LT 3V from 08/30/2020 FINDINGS: Status post removal of lateral tibial bone plate with screw hose noted in the proximal tibia. No fracture or dislocation. There are mild osteoarthritic changes at the knee IMPRESSION: Postsurgical changes with osteoarthritis Dictated by: Harvey Handley MD 08/30/2020 15:00 Harvey Handley MD in [place] 08/30/2020 15:00
== END ==
PROVIDERS: PCP Emergency Medicine; Visit Provider Orthopaedic Surgery
DX: Z98.890 Other specified postprocedural states (principal); Z09 Encounter for follow-up examination after completed treatment for conditions other than malignant neoplasm
CPT/HCPCS: 73562; 73590

== ENCOUNTER → 2020-10-10 16:56 | Outpatient (CLI) | payer MEDICAID, SELFPAY ==
[2020-10-12 10:10] LABS: Covid-19 Nasal PCR Sendout P&C POSITIVE
== END ==
PROVIDERS: PCP Emergency Medicine; Visit Provider Emergency Medicine
DX: Z20.822 Contact with and (suspected) exposure to COVID-19 (principal); U07.1 COVID-19
CPT/HCPCS: U0004

== ENCOUNTER → 2020-11-02 13:32 | Outpatient (CLI) | payer MEDICAID, SELFPAY ==
[2020-11-02 17:21] LABS: Amphetamine/Metha Screen,Urine Negative ng/ml (<1000)
[2020-11-02 17:22] LABS: Barbiturates Screen,Urine Negative ng/ml (<200); Benzodiazepines Screen,Urine Negative ng/ml (<200)
[2020-11-02 17:23] LABS: Cannabinoid Screen,Urine Negative ng/ml (<50)
[2020-11-02 17:24] LABS: Cocaine Screen,Urine Negative ng/ml (<300); Methadone Screen,Urine Negative ng/ml (<300)
[2020-11-02 17:26] LABS: Opiate Screen,Urine Negative ng/ml (<300)
[2020-11-02 17:27] LABS: Phencyclidine Screen,Urine Negative ng/ml (<25)
== END ==
PROVIDERS: Visit Provider Emergency Medicine
DX: Z79.899 Other long term (current) drug therapy (principal)
CPT/HCPCS: 80305

== ENCOUNTER → 2020-11-25 11:04 | Outpatient (CLI) | payer MEDICAID, SELFPAY ==
--- NOTE | 2020-11-25 11:04 | MM_ITS ---
PROCEDURE: MM DIG SCREENING MAMM BI W/CAD Digital Breast Tomosynthesis Included CLINICAL INDICATION: screening There is no personal or family history of breast cancer. Patient currently is on estrogen. COMPARISON: [facility] DIGITAL DIAGNOSTIC MAMMO from 02/03/2009 [facility] MM Dig screening mamm BI w/CAD from 10/02/2018 TECHNIQUE: Standard CC and MLO images and 3D Tomosynthesis was obtained. R2 CAD reviewed. FINDINGS: Breasts are composed primarily of minimal scattered fibroglandular densities throughout each breast. Findings are bilateral and symmetrical. There is no suspicious lesion in either breast and no suspicious microcalcifications. IMPRESSION: Fibrofatty parenchyma with no suspicious lesions seen BI-RAD Category: 1 Negative FOLLOW-UP: 1YR 1 Year Follow-up (A letter has been sent to the patient regarding results of the study.) Dictated by: Dr. Wayne Stafford MD 12/03/2020 10:21 Dr. Wayne Stafford MD in [place] 12/03/2020 10:21
== END ==
PROVIDERS: PCP Emergency Medicine; Visit Provider Emergency Medicine
DX: Z12.31 Encounter for screening mammogram for malignant neoplasm of breast (principal)
CPT/HCPCS: 77063; 77067

== ENCOUNTER → 2020-12-21 13:55 | Outpatient (CLI) | payer MEDICAID, SELFPAY ==
[2020-12-21 14:23] LABS: Barbiturates Screen,Urine Negative ng/ml (<200); Benzodiazepines Screen,Urine Negative ng/ml (<200)
[2020-12-21 14:24] LABS: Amphetamine/Metha Screen,Urine Negative ng/ml (<1000)
[2020-12-21 14:25] LABS: Cannabinoid Screen,Urine Negative ng/ml (<50); Cocaine Screen,Urine Negative ng/ml (<300)
[2020-12-21 14:26] LABS: Methadone Screen,Urine Positive ng/ml (<300)
[2020-12-21 14:28] LABS: Phencyclidine Screen,Urine Negative ng/ml (<25)
[2020-12-21 14:29] LABS: Opiate Screen,Urine Negative ng/ml (<300)
== END ==
PROVIDERS: Visit Provider Emergency Medicine
DX: Z79.899 Other long term (current) drug therapy (principal)
CPT/HCPCS: 80305

== ENCOUNTER → 2020-12-28 14:24 | Outpatient (CLI) | payer MEDICAID, SELFPAY ==
[2020-12-28 16:20] LABS: Amphetamine/Metha Screen,Urine Negative ng/ml (<1000)
[2020-12-28 16:21] LABS: Barbiturates Screen,Urine Negative ng/ml (<200); Benzodiazepines Screen,Urine Negative ng/ml (<200)
[2020-12-28 16:22] LABS: Cannabinoid Screen,Urine Negative ng/ml (<50); Methadone Screen,Urine Positive ng/ml (<300)
[2020-12-28 16:23] LABS: Cocaine Screen,Urine Negative ng/ml (<300)
[2020-12-28 16:24] LABS: Opiate Screen,Urine Negative ng/ml (<300); Phencyclidine Screen,Urine Negative ng/ml (<25)
== END ==
PROVIDERS: Visit Provider Emergency Medicine
DX: R89.2 Abnormal level of other drugs, medicaments and biological substances in specimens from other organs, systems and tissues (principal)
CPT/HCPCS: 80305

== ENCOUNTER → 2021-01-09 14:31 | Outpatient (CLI) | payer MEDICAID, SELFPAY ==
[2021-01-09 16:32] LABS: Amphetamine/Metha Screen,Urine Negative ng/ml (<1000)
[2021-01-09 16:33] LABS: Barbiturates Screen,Urine Negative ng/ml (<200)
[2021-01-09 16:34] LABS: Benzodiazepines Screen,Urine Negative ng/ml (<200); Cannabinoid Screen,Urine Negative ng/ml (<50)
[2021-01-09 16:35] LABS: Cocaine Screen,Urine Negative ng/ml (<300)
[2021-01-09 16:36] LABS: Methadone Screen,Urine Negative ng/ml (<300); Opiate Screen,Urine Negative ng/ml (<300)
[2021-01-09 16:37] LABS: Phencyclidine Screen,Urine Negative ng/ml (<25)
== END ==
PROVIDERS: Visit Provider Emergency Medicine
DX: F41.9 Anxiety disorder, unspecified (principal); Z79.899 Other long term (current) drug therapy
CPT/HCPCS: 80305

== ENCOUNTER → 2021-02-08 14:16 | Outpatient (CLI) | payer MEDICAID, SELFPAY ==
[2021-02-08 15:25] LABS: Amphetamine/Metha Screen,Urine Negative ng/ml (<1000)
[2021-02-08 15:26] LABS: Barbiturates Screen,Urine Negative ng/ml (<200)
[2021-02-08 15:27] LABS: Cannabinoid Screen,Urine Negative ng/ml (<50)
[2021-02-08 15:28] LABS: Cocaine Screen,Urine Negative ng/ml (<300); Methadone Screen,Urine Negative ng/ml (<300)
[2021-02-08 15:29] LABS: Opiate Screen,Urine Positive ng/ml (<300)
[2021-02-08 15:30] LABS: Phencyclidine Screen,Urine Negative ng/ml (<25)
[2021-02-08 15:40] LABS: Benzodiazepines Screen,Urine Negative ng/ml (<200)
== END ==
PROVIDERS: Visit Provider Emergency Medicine
DX: Z79.899 Other long term (current) drug therapy (principal)
CPT/HCPCS: 80305

== ENCOUNTER → 2021-03-28 13:29 | Outpatient (CLI) | payer MEDICAID, SELFPAY ==
[2021-03-28 14:44] LABS: Amphetamine/Metha Screen,Urine Negative ng/ml (<1000)
[2021-03-28 14:45] LABS: Barbiturates Screen,Urine Negative ng/ml (<200); Benzodiazepines Screen,Urine Negative ng/ml (<200)
[2021-03-28 14:46] LABS: Cannabinoid Screen,Urine Negative ng/ml (<50)
[2021-03-28 14:47] LABS: Cocaine Screen,Urine Negative ng/ml (<300); Methadone Screen,Urine Negative ng/ml (<300)
[2021-03-28 14:48] LABS: Opiate Screen,Urine Negative ng/ml (<300)
[2021-03-28 14:49] LABS: Phencyclidine Screen,Urine Negative ng/ml (<25)
== END ==
PROVIDERS: Visit Provider Emergency Medicine
DX: Z79.899 Other long term (current) drug therapy (principal)
CPT/HCPCS: 80305

== ENCOUNTER → 2021-05-02 15:45 | Outpatient (CLI) | payer MEDICAID, SELFPAY ==
[2021-05-02 16:22] LABS: Adenovirus,PCR Not Detected (NotDetected); Bordetella Pertussis Not Detected (NotDetected); Chlamydophila Pneumoniae, PCR Not Detected (NotDetected); Coronavirus 19, PCR Not Detected (NotDetected); Coronavirus 229E Not Detected (NotDetected); Coronavirus NL63 Not Detected (NotDetected); Coronavirus OC43 Not Detected (NotDetected); Coronovirus HKU1,PCR Not Detected (NotDetected); Human Metapneumovirus Not Detected (NotDetected); Influenza A, PCR Not Detected (NotDetected); Influenza AH1, 2009 Not Detected (NotDetected); Influenza AH1, PCR Not Detected (NotDetected); Influenza AH3,PCR Not Detected (NotDetected); Influenza B, PCR Not Detected (NotDetected); Mycoplasma Pneumoniae, PCR Not Detected (NotDetected); Parainfluenza 1, PCR Not Detected (NotDetected); Parainfluenza 2, PCR Not Detected (NotDetected); Parainfluenza 3, PCR Not Detected (NotDetected); Parainfluenza 4, PCR Not Detected (NotDetected); Respiratory Syncytial Virus Not Detected (NotDetected); Rhinovirus/Enterovirus Not Detected (NotDetected)
[2021-05-02 19:58] LABS: Amphetamine/Metha Screen,Urine Negative ng/ml (<1000)
[2021-05-02 19:59] LABS: Barbiturates Screen,Urine Negative ng/ml (<200)
[2021-05-02 20:00] LABS: Benzodiazepines Screen,Urine Negative ng/ml (<200); Cannabinoid Screen,Urine Negative ng/ml (<50)
[2021-05-02 20:01] LABS: Cocaine Screen,Urine Negative ng/ml (<300)
[2021-05-02 20:02] LABS: Methadone Screen,Urine Negative ng/ml (<300); Opiate Screen,Urine Negative ng/ml (<300)
[2021-05-02 20:03] LABS: Phencyclidine Screen,Urine Negative ng/ml (<25)
== END ==
PROVIDERS: PCP Emergency Medicine; Visit Provider Emergency Medicine
DX: Z20.822 Contact with and (suspected) exposure to COVID-19 (principal); Z79.899 Other long term (current) drug therapy
CPT/HCPCS: 80305; 87581; 87633; 87798

== ENCOUNTER → 2021-05-02 18:34 | Outpatient (CLI) | payer MEDICAID, SELFPAY | PROVIDERS: Visit Provider Emergency Medicine | DX: Z79.899 Other long term (current) drug therapy (principal) | CPT/HCPCS: 80305 ==

== ENCOUNTER → 2021-06-28 13:06 | Outpatient (CLI) | payer MEDICAID, SELFPAY ==
--- NOTE | 2021-06-28 13:11 | XR_ITS ---
PROCEDURE: XR WRIST RT MIN 3V CLINICAL INDICATION: right wrist pain/ CTS COMPARISON: No exams were available for comparison FINDINGS: No fracture or dislocation. No lytic or blastic change. There is normal mineralization. The joint spaces are well-preserved. No significant degenerative/arthritic changes. No erosive changes evident. Other findings:None. IMPRESSION: No acute findings. Dictated by: Harvey Handley MD 06/28/2021 17:32 Harvey Handley MD in [place] 06/28/2021 17:32
--- NOTE | 2021-06-28 13:11 | XR_ITS ---
PROCEDURE: XR WRIST LT MIN 3V CLINICAL INDICATION: left wrist pain/ CTS COMPARISON: No exams were available for comparison FINDINGS: No fracture or dislocation. No lytic or blastic change. There is normal mineralization. The joint spaces are well-preserved. No significant degenerative/arthritic changes. No erosive changes evident. Other findings:None. IMPRESSION: No acute findings. Dictated by: Harvey Handley MD 06/28/2021 17:32 Harvey Handley MD in [place] 06/28/2021 17:32
== END ==
PROVIDERS: PCP Emergency Medicine; Visit Provider Orthopaedic Surgery
DX: M25.531 Pain in right wrist (principal); M25.532 Pain in left wrist
CPT/HCPCS: 73110

== ENCOUNTER 2021-06-28 14:01 | Outpatient (RCR) | payer MEDICAID, SELFPAY | END 2021-06-28 15:00 | disposition home or self-care (01) | LOC: OT 14:01 | PROVIDERS: Visit Provider Orthopaedic Surgery | DX: G56.03 Carpal tunnel syndrome, bilateral upper limbs (principal) | CPT/HCPCS: 97763 ==

== ENCOUNTER → 2021-06-30 19:45 | Outpatient (CLI) | payer MEDICAID, SELFPAY ==
[2021-06-30 20:25] LABS: Amphetamine/Metha Screen,Urine Negative ng/ml (<1000); Barbiturates Screen,Urine Negative ng/ml (<200)
[2021-06-30 20:26] LABS: Benzodiazepines Screen,Urine Negative ng/ml (<200); Cannabinoid Screen,Urine Negative ng/ml (<50)
[2021-06-30 20:27] LABS: Cocaine Screen,Urine Negative ng/ml (<300)
[2021-06-30 20:28] LABS: Methadone Screen,Urine Negative ng/ml (<300); Opiate Screen,Urine Negative ng/ml (<300)
[2021-06-30 20:30] LABS: Phencyclidine Screen,Urine Negative ng/ml (<25)
== END ==
PROVIDERS: Visit Provider Emergency Medicine
DX: Z79.899 Other long term (current) drug therapy (principal)
CPT/HCPCS: 80305

== ENCOUNTER → 2021-08-28 19:00 | Outpatient (CLI) | payer MEDICAID, SELFPAY ==
[2021-08-28 20:10] LABS: Amphetamine/Metha Screen,Urine Negative ng/ml (<1000)
[2021-08-28 20:11] LABS: Barbiturates Screen,Urine Negative ng/ml (<200); Benzodiazepines Screen,Urine Negative ng/ml (<200)
[2021-08-28 20:12] LABS: Cannabinoid Screen,Urine Negative ng/ml (<50)
[2021-08-28 20:13] LABS: Cocaine Screen,Urine Negative ng/ml (<300); Methadone Screen,Urine Negative ng/ml (<300)
[2021-08-28 20:14] LABS: Opiate Screen,Urine Negative ng/ml (<300)
[2021-08-28 20:15] LABS: Phencyclidine Screen,Urine Negative ng/ml (<25)
== END ==
PROVIDERS: Visit Provider Emergency Medicine
DX: Z79.899 Other long term (current) drug therapy (principal)
CPT/HCPCS: 80305

== ENCOUNTER → 2021-10-27 16:00 | Outpatient (CLI) | payer MEDICAID, SELFPAY ==
[2021-10-27 19:21] LABS: Amphetamine/Metha Screen,Urine Negative ng/ml (<1000)
[2021-10-27 19:24] LABS: Barbiturates Screen,Urine Negative ng/ml (<200); Benzodiazepines Screen,Urine Negative ng/ml (<200)
[2021-10-27 19:25] LABS: Cannabinoid Screen,Urine Negative ng/ml (<50)
[2021-10-27 19:26] LABS: Cocaine Screen,Urine Negative ng/ml (<300); Methadone Screen,Urine Negative ng/ml (<300)
[2021-10-27 19:27] LABS: Opiate Screen,Urine Negative ng/ml (<300)
[2021-10-27 19:28] LABS: Phencyclidine Screen,Urine Negative ng/ml (<25)
== END ==
PROVIDERS: Visit Provider Emergency Medicine
DX: Z79.899 Other long term (current) drug therapy (principal)
CPT/HCPCS: 80305

== ENCOUNTER → 2021-12-19 14:36 | Outpatient (CLI) | payer MEDICAID, SELFPAY ==
[2021-12-19 19:44] LABS: Amphetamine/Metha Screen,Urine Negative ng/ml (<1000); Barbiturates Screen,Urine Negative ng/ml (<200)
[2021-12-19 19:47] LABS: Benzodiazepines Screen,Urine Positive ng/ml (<200)
[2021-12-19 19:48] LABS: Cannabinoid Screen,Urine Negative ng/ml (<50); Cocaine Screen,Urine Negative ng/ml (<300)
[2021-12-19 19:49] LABS: Opiate Screen,Urine Positive ng/ml (<300)
[2021-12-19 19:50] LABS: Phencyclidine Screen,Urine Negative ng/ml (<25)
[2021-12-19 19:53] LABS: Methadone Screen,Urine Negative ng/ml (<300)
== END ==
PROVIDERS: Visit Provider Emergency Medicine
DX: Z79.899 Other long term (current) drug therapy (principal)
CPT/HCPCS: 80305

== ENCOUNTER → 2022-02-20 07:00 | Outpatient (CLI) | payer MEDICAID, SELFPAY ==
[2022-02-19 17:29] LABS: Amphetamine/Metha Screen,Urine Positive ng/ml (<1000)
[2022-02-19 17:30] LABS: Barbiturates Screen,Urine Negative ng/ml (<200); Benzodiazepines Screen,Urine Positive ng/ml (<200)
[2022-02-19 17:31] LABS: Cannabinoid Screen,Urine Negative ng/ml (<50); Cocaine Screen,Urine Negative ng/ml (<300)
[2022-02-19 17:32] LABS: Methadone Screen,Urine Negative ng/ml (<300)
[2022-02-19 17:33] LABS: Opiate Screen,Urine Negative ng/ml (<300)
[2022-02-19 17:34] LABS: Phencyclidine Screen,Urine Negative ng/ml (<25)
== END ==
PROVIDERS: PCP Emergency Medicine; Visit Provider Emergency Medicine
DX: Z79.899 Other long term (current) drug therapy (principal)
CPT/HCPCS: 80305

== ENCOUNTER → 2022-04-23 06:54 | Outpatient (CLI) | payer MEDICAID, SELFPAY ==
[2022-04-23 20:00] LABS: Amphetamine/Metha Screen,Urine Negative ng/ml (<1000)
[2022-04-23 20:01] LABS: Barbiturates Screen,Urine Negative ng/ml (<200)
[2022-04-23 20:02] LABS: Benzodiazepines Screen,Urine Positive ng/ml (<200); Cannabinoid Screen,Urine Negative ng/ml (<50)
[2022-04-23 20:03] LABS: Cocaine Screen,Urine Negative ng/ml (<300)
[2022-04-23 20:04] LABS: Methadone Screen,Urine Negative ng/ml (<300); Opiate Screen,Urine Negative ng/ml (<300)
[2022-04-23 20:05] LABS: Phencyclidine Screen,Urine Negative ng/ml (<25)
== END ==
PROVIDERS: PCP Emergency Medicine; Visit Provider Emergency Medicine
DX: F41.9 Anxiety disorder, unspecified (principal)
CPT/HCPCS: 80305

== ENCOUNTER → 2022-06-23 08:30 | Outpatient (CLI) | payer MEDICAID, SELFPAY ==
[2022-06-22 19:16] LABS: Amphetamine/Metha Screen,Urine Negative ng/ml (<1000); Barbiturates Screen,Urine Negative ng/ml (<200)
[2022-06-22 19:17] LABS: Benzodiazepines Screen,Urine Negative ng/ml (<200)
[2022-06-22 19:19] LABS: Cocaine Screen,Urine Negative ng/ml (<300)
[2022-06-22 19:20] LABS: Methadone Screen,Urine Negative ng/ml (<300); Opiate Screen,Urine Negative ng/ml (<300)
[2022-06-22 19:21] LABS: Phencyclidine Screen,Urine Negative ng/ml (<25)
[2022-06-22 20:41] LABS: Cannabinoid Screen,Urine Positive ng/ml (<50)
== END ==
PROVIDERS: PCP Emergency Medicine; Visit Provider Emergency Medicine
DX: M54.9 Dorsalgia, unspecified (principal); G89.29 Other chronic pain
CPT/HCPCS: 80305

== ENCOUNTER 2022-08-03 06:19 | Day surgery (SDC) | payer MEDICAID, SELFPAY ==
[2022-08-01 14:26] VITALS: BMI 26.7
[2022-08-03 06:38] VITALS: BP 148/96; PULSE 71; RESP 18; TEMP 36.4; O2SAT 100
--- NOTE | 2022-08-03 07:13 | EXP.ANES.CKL ---
PFSH PFS Medical History Depression History of back pain History of COVID-19 History of fracture of left hip Hyperlipidemia (~02/25/18) Hypothyroidism (~02/25/18) Surgical History History of History of hysterectomy History of left knee surgery History of tonsillectomy and adenoidectomy Family History Other Cancer Social History Smoking Status: Current every day smoker tobacco type: cigarettes packs per day: 2 years smoked: 26 alcohol intake: never counseling provided: none substance use type: denies use current occupational status: unemployed Travel in the last 8 weeks: None household members: spouse housing: house current occupational exposures/hazards: No caffeine: Yes [facility] Anesthesia Checklist Patient Identification Patient Identification: Arm Band and Verbal (Name & ) Structural Data Admitted From: Home Planned Operative Procedure/s: CTR Consent for Planned Operative Procedure(s) Verified: Yes NPO Status Verified Time NPO: 00:00 Additional verifications Anesthesia Reactions: No Hx Blood Transfusions: No Blood Transfusion Reaction: No Airway Assessment C-Spine Mobility Assessed: Yes TMJ Mobility Assessed: Yes Dentition: Dentures-good fit Neurological Assessment Level of Consciousness: Awake Hx Seizures: No Numbness or tingling in extremities: Yes Anesthesia Plan Anesthesia Risk discussed: Yes Anesthesia Plan: Verified ASA Class: II Anesthesia Type: MAC
[2022-08-03 07:22] LABS: Alanine Aminotransferase 38 U/L (12-78); Alkaline Phosphatase 78 U/L (38-126); Anion Gap 15.8 mEq/L (5-15); Aspartate Amino Transferase 41 U/L (14-36); Bilirubin,Total 0.3 mg/dl (0.2-1.3); Blood Urea Nitrogen 13 mg/dl (7-17); Calcium 10.3 mg/dl (8.4-10.2); Carbon Dioxide 32 mmol/L (22.0-30.0); Chloride 98 mmol/L (98-107); Creatinine Clearance Estimated 98 mL/min (50-200); Estimated Glomerular Filt Rate 77 ml/min (>60); GFR (African American) 93 ML/MIN (>60); Globulin 2.5 g/dL (1.3-3.2); Glucose 88 mg/dl (74-100); Potassium 3.8 mmoL/L (3.5-5.1); Sodium 142 mmol/L (136-145); Total Protein,Serum 7.5 g/dl (6.3-8.2)
[2022-08-03 08:13] VITALS: BP 85/58; PULSE 66; RESP 16; TEMP 36.2; O2SAT 100
--- NOTE | 2022-08-03 08:15 | P.OP_ITS ---
Date of procedure: 08/03/22 Pre-op Diagnosis:: Right carpal tunnel syndrome Post-op Diagnosis:: Same Procedure performed:: [id number]: Right endoscopic carpal tunnel release Surgeon:: Louis Vega JR, MD RADIOLOGY PRACTITIONER ASSISTANT:: Marilee Wilkinson Anesthesia: MAC Estimated blood loss (mL): 5 Clinical Note:: 47-year-old female with right carpal tunnel syndrome refractory to conservative measures. She was interested in more durable intervention. I recommended right endoscopic carpal tunnel release. She was amenable with the plan. We discussed the risk and benefits of surgery. Risks included but were not limited to pain, bleeding, infection, damage to adjacent structures, need for further surgery, wound healing complications, loss of limb, . Patient expressed verbal consent and written consent was obtained for the above procedure. Operative findings:: Transverse carpal ligament transection confirmed endoscopically and with direct visualization. Operative note:: Patient was identified in preoperative holding. Operative site was marked in indelible ink. History, physical, consent were reviewed and updated. Patient was surrendered to the anesthesia team, taken to the operative suite, placed supine on a well-padded operative table. A nonsterile tourniquet placed on the proximal brachium. Anesthesia was induced. The operative extremity was prepped and draped in the usual sterile fashion. The operative team donned sterile gowns and gloves and a timeout was called. All in attendance agreed regarding the patient's identity, procedure, operative site. Weight-based dose of antibiotics was given prior to incision. I made a transverse incision at the proximal wrist crease proximal to the transverse carpal ligament. I bluntly dissected through skin and subcutaneous tissue with care taken to avoid injuring the palmaris longus. I transected the fascia, inserted a dilating probe deep to the transverse carpal ligament and noted its depth distal to the transverse carpal ligament. I then inserted a cannula and scope, visualize the fibers of the transverse carpal ligament. I took to the distal aspect of the transverse carpal ligament to confirm its location, then with a curved blade under endoscopic visualization, transected the fibers of the transverse carpal ligament and noted that they retracted medially and laterally. I removed the cannula, achieved hemostasis, closed with Monocryl, Prineo and Dermabond. Dressings were applied. Counts were correct x2. There were no apparent complications. I was present scrubbed for the entire case. Postoperatively, plan to leave dressing in place for 5 days, then remove all but Prineo. Okay to shower but do not soak wound at that point. Finger mobility, limit weightbearing to 10 pounds until follow-up in 2 weeks at which point I anticipate initiating physical therapy. Condition: stable Disposition: PACU Complications:: none
[2022-08-03 08:23] VITALS: BP 92/60; PULSE 66; RESP 17; O2SAT 100
[2022-08-03 08:33] VITALS: BP 93/63; PULSE 67; RESP 16; O2SAT 100
[2022-08-03 08:43] VITALS: BP 125/69; PULSE 62; RESP 17; O2SAT 100
[2022-08-03 09:15] VITALS: BP 133/86; PULSE 60; RESP 16; TEMP 36.4; O2SAT 100
[2022-08-03 09:16] LABS: Basophils # 0.2 K/mm3 (0-0.2); Eosinophils # 0.1 K/mm3 (0.0-0.4); Hematocrit 50.9 % (37.0-47.0); Lymphocytes # 3.2 K/mm3 (0.7-4.5); Lymphocytes % 32.3 % (10-50); Mean Corpuscular HGB Conc 33.5 g/dL (31.8-35.4); Mean Corpuscular Hemoglobin 30.9 pg (27.0-31.2); Mean Corpuscular Volume 92.3 fl (81-99); Mean Platelet Volume 9.2 fl (7.4-10.4); Monocytes # 0.3 K/mm3 (0.1-1.0); Monocytes % 3.2 % (1.7-9.3); Neutrophils # 6.1 K/mm3 (1.8-7.8); Neutrophils % 61.5 % (37.0-80.0); Platelet Count 270 K/mm3 (142-424); Red Blood Count 5.52 M/mm3 (4.20-5.40); Red Cell Distribution Width 13.2 % (11.5-17.5); White Blood Count 9.9 K/mm3 (4.8-10.8)
--- NOTE | 2022-08-03 09:29 | SUR.PHASEII ---
pt express she does have pain with movement. given ice, but patient did not want to leave it on site d/t being cold. states she will take her pain medicine when they get it from the pharmacy at d/c.
--- NOTE | 2022-08-03 09:55 | SUR.PHASEII ---
RECEIVED CALL FROM PT'S . HE STATES THAT WHEN THEY GOT TO CLINIC PHARMACY TO [employer]PER[employer] PAIN MEDS THEY WERE INFORMED THEY COULD NOT FILL THIS SCRIPT D/T ALT SCRIPT FOR OXYCODONES. STATES THAT SHE HAD LOST THE BOTTLE OF PRESCRIPTION 10 MG OXYCODONES A DAY OR SO AGO AND THAT SHE WOULD NOT HAVE ANY PAIN MEDICATION IF THEY WERE UNABLE TO PICK THESE UP. SPOKE TO DR MCKEON ABOUT SITUATION, STATES THAT HE WILL CALL CLINIC PHARMACY TO ASSESS WHAT NEEDS TO BE DONE IN ORDER FOR PT TO HAVE PAIN MEDS. UPDATED THAT MD WAS CALLING PHARMACY AND GAVE CALL BACK # IF HE IS STILL UNABLE TO PICK PT'S MEDS UP. PT'S OKAY W/ THIS PLAN. S YOUNG,RN MADE AWARE OF THIS WELL.
== END 2022-08-03 09:20 | disposition home or self-care (01) ==
PROVIDERS: PCP Emergency Medicine; Visit Provider Orthopaedic Surgery
PROC: (CPT 64721; principal; 2022-08-03 07:30)
DX: G56.01 Carpal tunnel syndrome, right upper limb (principal)
CPT/HCPCS: 64721; 80053; 85025; 96374

== ENCOUNTER → 2022-08-21 11:20 | Outpatient (CLI) | payer MEDICAID, SELFPAY ==
[2022-08-21 15:14] LABS: Benzodiazepines Screen,Urine Positive ng/ml (<200)
[2022-08-21 15:15] LABS: Amphetamine/Metha Screen,Urine Positive ng/ml (<1000); Barbiturates Screen,Urine Negative ng/ml (<200)
[2022-08-21 15:16] LABS: Methadone Screen,Urine Negative ng/ml (<300)
[2022-08-21 15:17] LABS: Cannabinoid Screen,Urine Negative ng/ml (<50); Cocaine Screen,Urine Negative ng/ml (<300)
[2022-08-21 15:18] LABS: Opiate Screen,Urine Negative ng/ml (<300); Phencyclidine Screen,Urine Negative ng/ml (<25)
== END ==
PROVIDERS: PCP Emergency Medicine; Visit Provider Emergency Medicine
DX: Z79.899 Other long term (current) drug therapy (principal)
CPT/HCPCS: 80305

== ENCOUNTER → 2022-10-17 19:27 | Outpatient (CLI) | payer MEDICAID, SELFPAY ==
[2022-10-17 21:47] LABS: Amphetamine/Metha Screen,Urine Negative ng/ml (<1000)
[2022-10-17 21:48] LABS: Barbiturates Screen,Urine Negative ng/ml (<200); Benzodiazepines Screen,Urine Positive ng/ml (<200)
[2022-10-17 21:49] LABS: Cannabinoid Screen,Urine Negative ng/ml (<50)
[2022-10-17 21:50] LABS: Cocaine Screen,Urine Negative ng/ml (<300); Methadone Screen,Urine Negative ng/ml (<300)
[2022-10-17 21:51] LABS: Opiate Screen,Urine Positive ng/ml (<300); Phencyclidine Screen,Urine Negative ng/ml (<25)
== END ==
PROVIDERS: PCP Emergency Medicine; Visit Provider Emergency Medicine
DX: Z79.899 Other long term (current) drug therapy (principal)
CPT/HCPCS: 80305

== ENCOUNTER → 2022-12-10 13:59 | Outpatient (CLI) | payer MEDICAID, SELFPAY ==
[2022-12-10 19:42] LABS: Amphetamine/Metha Screen,Urine Negative ng/ml (<1000); Barbiturates Screen,Urine Negative ng/ml (<200)
[2022-12-10 19:43] LABS: Benzodiazepines Screen,Urine Negative ng/ml (<200)
[2022-12-10 19:44] LABS: Cannabinoid Screen,Urine Negative ng/ml (<50)
[2022-12-10 19:45] LABS: Methadone Screen,Urine Negative ng/ml (<300); Opiate Screen,Urine Negative ng/ml (<300)
[2022-12-10 19:46] LABS: Phencyclidine Screen,Urine Negative ng/ml (<25)
[2022-12-10 22:18] LABS: Cocaine Screen,Urine Negative ng/ml (<300)
== END ==
PROVIDERS: PCP Emergency Medicine; Visit Provider Emergency Medicine
DX: Z79.899 Other long term (current) drug therapy (principal)
CPT/HCPCS: 80305

== ENCOUNTER → 2023-04-17 13:01 | Outpatient (CLI) | payer MEDICAID, SELFPAY ==
[2023-04-17 16:39] LABS: Amphetamine/Metha Screen,Urine Negative ng/ml (<1000); Barbiturates Screen,Urine Negative ng/ml (<200); Benzodiazepines Screen,Urine Positive ng/ml (<200); Cocaine Screen,Urine Negative ng/ml (<300); Phencyclidine Screen,Urine Negative ng/ml (<25)
[2023-04-17 17:08] LABS: Cannabinoid Screen,Urine Negative ng/ml (<50)
[2023-04-17 17:09] LABS: Opiate Screen,Urine Negative ng/ml (<300)
[2023-04-17 17:17] LABS: Methadone Screen,Urine Negative ng/ml (<300)
== END ==
PROVIDERS: PCP Emergency Medicine; Visit Provider Emergency Medicine
DX: Z79.899 Other long term (current) drug therapy (principal)
CPT/HCPCS: 80305

== ENCOUNTER → 2023-06-05 01:10 | Outpatient (CLI) | payer MEDICAID, SELFPAY ==
[2023-06-05 19:28] LABS: Amphetamine/Metha Screen,Urine Negative ng/ml (<1000)
[2023-06-05 19:29] LABS: Barbiturates Screen,Urine Negative ng/ml (<200); Benzodiazepines Screen,Urine Negative ng/ml (<200)
[2023-06-05 19:30] LABS: Cannabinoid Screen,Urine Positive ng/ml (<50); Methadone Screen,Urine Negative ng/ml (<300)
[2023-06-05 19:31] LABS: Cocaine Screen,Urine Negative ng/ml (<300)
[2023-06-05 19:34] LABS: Opiate Screen,Urine Negative ng/ml (<300); Phencyclidine Screen,Urine Negative ng/ml (<25)
== END ==
PROVIDERS: PCP Emergency Medicine; Visit Provider Emergency Medicine
DX: Z79.899 Other long term (current) drug therapy (principal)
CPT/HCPCS: 80305

== ENCOUNTER → 2023-08-05 08:39 | Outpatient (CLI) | payer MEDICAID, SELFPAY ==
[2023-08-05 19:51] LABS: Amphetamine/Metha Screen,Urine Negative ng/ml (<1000); Barbiturates Screen,Urine Negative ng/ml (<200)
[2023-08-05 19:54] LABS: Methadone Screen,Urine Negative ng/ml (<300); Opiate Screen,Urine Negative ng/ml (<300)
[2023-08-05 19:55] LABS: Phencyclidine Screen,Urine Negative ng/ml (<25)
[2023-08-05 20:21] LABS: Cannabinoid Screen,Urine Negative ng/ml (<50)
[2023-08-05 20:22] LABS: Cocaine Screen,Urine Negative ng/ml (<300)
[2023-08-05 22:21] LABS: Benzodiazepines Screen,Urine Negative ng/ml (<200)
== END ==
PROVIDERS: PCP Emergency Medicine; Visit Provider Emergency Medicine
DX: F41.9 Anxiety disorder, unspecified (principal)
CPT/HCPCS: 80305

== ENCOUNTER → 2023-08-14 08:16 | Outpatient (CLI) | payer MEDICAID, SELFPAY ==
[2023-08-14 20:14] LABS: Barbiturates Screen,Urine Negative ng/ml (<200)
[2023-08-14 20:15] LABS: Amphetamine/Metha Screen,Urine Negative ng/ml (<1000); Benzodiazepines Screen,Urine Positive ng/ml (<200)
[2023-08-14 20:16] LABS: Cocaine Screen,Urine Negative ng/ml (<300)
[2023-08-14 20:17] LABS: Cannabinoid Screen,Urine Negative ng/ml (<50); Methadone Screen,Urine Negative ng/ml (<300)
[2023-08-14 20:18] LABS: Opiate Screen,Urine Negative ng/ml (<300)
[2023-08-14 20:19] LABS: Phencyclidine Screen,Urine Negative ng/ml (<25)
== END ==
PROVIDERS: PCP Internal Medicine; Visit Provider Internal Medicine
DX: Z79.899 Other long term (current) drug therapy (principal)
CPT/HCPCS: 80305

== ENCOUNTER → 2023-09-11 08:57 | Outpatient (CLI) | payer MEDICAID, SELFPAY ==
[2023-09-11 19:19] LABS: Coronavirus 19, PCR Not Detected (NotDetected); Influenza A, PCR Not Detected (NotDetected); Influenza B, PCR Not Detected (NotDetected)
[2023-09-11 21:40] LABS: Amphetamine/Metha Screen,Urine Negative ng/ml (<1000); Barbiturates Screen,Urine Negative ng/ml (<200)
[2023-09-11 21:41] LABS: Benzodiazepines Screen,Urine Positive ng/ml (<200); Cannabinoid Screen,Urine Negative ng/ml (<50)
[2023-09-11 21:42] LABS: Cocaine Screen,Urine Negative ng/ml (<300)
[2023-09-11 21:43] LABS: Methadone Screen,Urine Negative ng/ml (<300); Opiate Screen,Urine Negative ng/ml (<300)
[2023-09-11 21:44] LABS: Phencyclidine Screen,Urine Negative ng/ml (<25)
== END ==
LOC: LAB.DROPOF 09-18 08:57
PROVIDERS: PCP Internal Medicine; Visit Provider Internal Medicine
DX: R05.1 Acute cough (principal); M51.16 Intervertebral disc disorders with radiculopathy, lumbar region
CPT/HCPCS: 80307; 87636

== ENCOUNTER 2024-01-27 10:04 | Outpatient (CLI) | payer MEDICAID, SELFPAY ==
[2024-01-27 19:44] LABS: Alanine Aminotransferase 48 U/L (12-78); Albumin Level 4.1 g/dl (3.5-5.0); Albumin/Globulin Ratio 1.5 (1.1-1.8); Alkaline Phosphatase 72 U/L (38-126); Anion Gap 11.5 mEq/L (5-15); Aspartate Amino Transferase 42 U/L (14-36); Bilirubin,Total 0.5 mg/dl (0.2-1.3); Blood Urea Nitrogen 11 mg/dl (7-17); Calcium 9.5 mg/dl (8.4-10.2); Carbon Dioxide 27 mmol/L (22.0-30.0); Chloride 105 mmol/L (98-107); Cholesterol 210 mg/dl (140-200); Estimated Glomerular Filt Rate 107 ml/min (>60); GFR (African American) 130 ML/MIN (>60); Globulin 2.8 g/dL (1.3-3.2); Glucose 90 mg/dl (74-100); Potassium 4.5 mmoL/L (3.5-5.1); Sodium 139 mmol/L (136-145); Total Protein,Serum 6.9 g/dl (6.3-8.2); Triglycerides 90 mg/dl (30-150); VLDL Cholesterol 18 mg/dL (0-40)
[2024-01-27 19:54] LABS: HDL Cholesterol 111 mg/dl (40-60)
[2024-01-27 19:55] LABS: Chol/HDL Ratio 1.9 (1-3.5); Direct LDL Cholesterol 79.46 mg/dL (100-129)
[2024-01-27 20:12] LABS: Thyroid Stimulating Hormone 2.36 uIU/mL (0.465-4.68)
== END 2024-01-27 23:59 | disposition home or self-care (01) ==
LOC: LAB.DROPOF 01-29 10:05
PROVIDERS: PCP Internal Medicine; Visit Provider Internal Medicine
DX: E78.2 Mixed hyperlipidemia (principal); E03.9 Hypothyroidism, unspecified; M54.16 Radiculopathy, lumbar region; E55.9 Vitamin D deficiency, unspecified
CPT/HCPCS: 80053; 80061; 82306; 84443

== ENCOUNTER 2024-02-24 18:00 | Outpatient (CLI) | payer MEDICAID, SELFPAY | END 2024-02-24 23:59 | disposition home or self-care (01) | LOC: LAB.DROPOF 02-25 09:35 | PROVIDERS: PCP Podiatrist; Visit Provider Podiatrist | DX: B35.1 Tinea unguium (principal) | CPT/HCPCS: 87102; 87206; 87220 ==

== ENCOUNTER 2024-02-25 09:57 | Outpatient (CLI) | payer MEDICAID, SELFPAY ==
[2024-02-25 18:11] LABS: Basophils # 0.1 K/mm3 (0-0.2); Eosinophils # 0.7 K/mm3 (0.0-0.4); Eosinophils % 5.9 % (0.1-12.0); Hematocrit 49.3 % (37.0-47.0); Lymphocytes # 3.4 K/mm3 (0.7-4.5); Mean Corpuscular HGB Conc 32.5 g/dL (31.8-35.4); Mean Corpuscular Hemoglobin 31.2 pg (27.0-31.2); Mean Platelet Volume 9.6 fl (7.4-10.4); Monocytes # 0.7 K/mm3 (0.1-1.0); Monocytes % 6.1 % (1.7-9.3); Neutrophils # 6.4 K/mm3 (1.8-7.8); Platelet Count 295 K/mm3 (142-424); Red Blood Count 5.13 M/mm3 (4.20-5.40); Red Cell Distribution Width 14.2 % (11.5-17.5); White Blood Count 11.2 K/mm3 (4.8-10.8)
== END 2024-02-25 23:59 | disposition home or self-care (01) ==
LOC: LAB.DROPOF 02-26 09:58
PROVIDERS: PCP Internal Medicine; Visit Provider Internal Medicine
DX: R53.83 Other fatigue (principal)
CPT/HCPCS: 85025